=== PATIENT | female | born 1990 | race Two or more races ===

== ENCOUNTER 2020-03-19 14:36 | Observation (INO) | payer MEDICAID ==
[2020-03-19] MEDS ORDERED: FERR-7 PO (15:14)
[2020-03-19] MEDS ORDERED: PREN-96 PO (15:14)
== END 2020-03-19 16:00 | disposition home or self-care (01) ==
LOC: LDRP 14:36
PROVIDERS: ADMIT Specialist; ATTEND Specialist
DX: O24.419 Gestational diabetes mellitus in pregnancy, unspecified control (principal); Z3A.31 31 weeks gestation of pregnancy
CPT/HCPCS: 59025; 76818; 81002; 82962; G0378

== ENCOUNTER 2020-03-22 14:26 | Observation (INO) | payer MEDICAID ==
[~2020-03-22] VITALS: Ht 160 cm; Wt 64.9 kg
[~2020-03-22 14:26] MED LIST: FERR-7 PO; PREN-96 PO
== END 2020-03-22 16:54 | disposition home or self-care (01) ==
LOC: LDRP 14:26
PROVIDERS: ADMIT Obstetrics & Gynecology; ATTEND Obstetrics & Gynecology
DX: O24.419 Gestational diabetes mellitus in pregnancy, unspecified control (principal); Z3A.31 31 weeks gestation of pregnancy
CPT/HCPCS: 59025; 76818; 81002; 82948; 82962; G0378

== ENCOUNTER 2020-03-26 19:45 | Observation (INO) | payer MEDICAID | END 2020-03-26 21:57 | disposition home or self-care (01) | LOC: LDRP 19:45 | PROVIDERS: ADMIT Specialist; ATTEND Specialist | DX: O24.410 Gestational diabetes mellitus in pregnancy, diet controlled (principal); O99.333 Smoking (tobacco) complicating pregnancy, third trimester; F17.200 Nicotine dependence, unspecified, uncomplicated; Z3A.32 32 weeks gestation of pregnancy | CPT/HCPCS: 59025; 76818; 81002; 82948; 82962; G0378 ==

== ENCOUNTER 2020-03-30 19:01 | Observation (INO) | payer MEDICAID | END 2020-03-30 21:13 | disposition home or self-care (01) | LOC: UNDOADMOB 19:01 → LDRP 19:01 → UNDODISOB 21:13 | PROVIDERS: ADMIT Specialist; ATTEND Specialist | DX: O24.410 Gestational diabetes mellitus in pregnancy, diet controlled (principal); O26.893 Other specified pregnancy related conditions, third trimester; R51.9 Headache, unspecified; Z3A.33 33 weeks gestation of pregnancy | CPT/HCPCS: 59025; 76818; 81002; 82948; 82962; G0378 ==

== ENCOUNTER 2020-04-03 19:03 | Observation (INO) | payer MEDICAID | END 2020-04-03 20:22 | disposition home or self-care (01) | LOC: UNDOADMOB 19:03 → LDRP 19:03 → UNDODISOB 20:22 | PROVIDERS: ADMIT Obstetrics & Gynecology; ATTEND Obstetrics & Gynecology | DX: O24.419 Gestational diabetes mellitus in pregnancy, unspecified control (principal); Z3A.33 33 weeks gestation of pregnancy | CPT/HCPCS: 59025; 76818; 81002; 82948; 82962; G0378 ==

== ENCOUNTER 2020-04-06 19:00 | Observation (INO) | payer MEDICAID ==
[2020-04-06] MEDS ORDERED: TERBUTALINE SULFATE 1 MG/ML 1ML VIAL SC ONE ×2 (22:08→22:15)
[2020-04-06] MEDS ORDERED: LACTATED RINGER'S 1,000 ML IV ONE (22:15)
== END 2020-04-06 23:39 | disposition home or self-care (01) ==
LOC: LDRP 19:00 → UNDOADMOB 19:00 → UNDODISOB 23:39
PROVIDERS: ADMIT Specialist; ATTEND Specialist
DX: O24.419 Gestational diabetes mellitus in pregnancy, unspecified control (principal); Z20.828 Contact with and (suspected) exposure to other viral communicable diseases; O26.893 Other specified pregnancy related conditions, third trimester; R51.9 Headache, unspecified; R50.9 Fever, unspecified; Z3A.34 34 weeks gestation of pregnancy
CPT/HCPCS: 36415; 59025; 76818; 81002; 82962; 87426; 96360; 96361; 96372; G0378; J3105; U0003

== ENCOUNTER 2020-04-10 18:56 | Observation (INO) | payer MEDICAID | END 2020-04-10 20:43 | disposition home or self-care (01) | LOC: LDRP 18:56 → UNDOADMOB 18:56 → UNDODISOB 20:43 | PROVIDERS: ADMIT Specialist; ATTEND Specialist | DX: O24.419 Gestational diabetes mellitus in pregnancy, unspecified control (principal); Z3A.34 34 weeks gestation of pregnancy | CPT/HCPCS: 59025; 76818; 81002; 82948; G0378 ==

== ENCOUNTER 2020-04-14 19:10 | Observation (INO) | payer MEDICAID ==
[~2020-04-14] VITALS: Ht 160 cm; Wt 66.2 kg
[2020-04-14] MEDS ORDERED: NIFEdipine 10 MG CAP PO ONE (20:15)
[2020-04-14] MEDS ORDERED: NIFEdipine 10 MG CAP ONE (20:16)
[2020-04-14] MEDS ORDERED: TERBUTALINE SULFATE 1 MG/ML 1ML VIAL SC ONE ×2 (20:45→20:47)
[2020-04-14] MEDS ORDERED: NIF10C GT (21:14)
== END 2020-04-14 22:17 | disposition home or self-care (01) ==
LOC: LDRP 19:10
PROVIDERS: ADMIT Obstetrics & Gynecology; ATTEND Obstetrics & Gynecology
DX: O24.419 Gestational diabetes mellitus in pregnancy, unspecified control (principal); Z3A.34 34 weeks gestation of pregnancy
CPT/HCPCS: 59025; 76818; 81002; 96372; G0378; J3105

== ENCOUNTER 2020-04-17 20:01 | Observation (INO) | payer MEDICAID ==
[~2020-04-17 20:01] MED LIST changes: +NIF10C GT
[2020-04-17] MEDS ORDERED: NIF10C PO (20:45)
== END 2020-04-17 22:36 | disposition home or self-care (01) ==
LOC: LDRP 20:01
PROVIDERS: ADMIT Specialist; ATTEND Specialist
DX: O24.410 Gestational diabetes mellitus in pregnancy, diet controlled (principal); O98.513 Other viral diseases complicating pregnancy, third trimester; U07.1 COVID-19; Z3A.35 35 weeks gestation of pregnancy
CPT/HCPCS: 59025; 76818; 81002; 82948; 82962; G0378

== ENCOUNTER 2020-04-20 19:03 | Observation (INO) | payer MEDICAID ==
[~2020-04-20 19:03] MED LIST changes: -NIF10C GT; +NIF10C PO
[2020-04-20] MEDS ORDERED: diphenhdrAMINE HCL 25 MG CAP PO ONE (21:45)
== END 2020-04-20 22:19 | disposition home or self-care (01) ==
LOC: LDRP 19:03
PROVIDERS: ADMIT Obstetrics & Gynecology; ATTEND Obstetrics & Gynecology
DX: O24.410 Gestational diabetes mellitus in pregnancy, diet controlled (principal); O98.513 Other viral diseases complicating pregnancy, third trimester; U07.1 COVID-19; Z3A.36 36 weeks gestation of pregnancy
CPT/HCPCS: 59025; 76818; 81002; 82962; G0378

== ENCOUNTER 2020-04-24 19:57 | Observation (INO) | payer MEDICAID | END 2020-04-24 21:55 | disposition home or self-care (01) | LOC: LDRP 19:57 → UNDOADMOB 19:57 → UNDODISOB 21:55 | PROVIDERS: ADMIT Specialist; ATTEND Specialist | DX: O24.419 Gestational diabetes mellitus in pregnancy, unspecified control (principal); O98.513 Other viral diseases complicating pregnancy, third trimester; U07.1 COVID-19; Z3A.36 36 weeks gestation of pregnancy | CPT/HCPCS: 59025; 76818; 81002; 82948; G0378 ==

== ENCOUNTER 2020-04-27 19:54 | Observation (INO) | payer MEDICAID ==
[~2020-04-27] VITALS: Ht 160 cm; Wt 67.1 kg
[~2020-04-27 19:54] MED LIST changes: -FERR-7 PO
[2020-04-27] MEDS ORDERED: PREN-96 PO (21:21)
[2020-04-27] MEDS ORDERED: NIF10C GT (21:21)
== END 2020-04-27 22:16 | disposition home or self-care (01) ==
LOC: LDRP 19:54
PROVIDERS: ADMIT Specialist; ATTEND Specialist
DX: O24.419 Gestational diabetes mellitus in pregnancy, unspecified control (principal); Z3A.37 37 weeks gestation of pregnancy
CPT/HCPCS: 59025; 76818; 81002; 82948; 82962; G0378

== ENCOUNTER 2020-05-01 19:55 | Observation (INO) | payer MEDICAID ==
[~2020-05-01] VITALS: Ht 160 cm; Wt 67.1 kg
== END 2020-05-01 22:14 | disposition home or self-care (01) ==
LOC: LDRP 19:55
PROVIDERS: ADMIT Specialist; ATTEND Specialist
DX: O24.419 Gestational diabetes mellitus in pregnancy, unspecified control (principal); Z3A.37 37 weeks gestation of pregnancy
CPT/HCPCS: 59025; 76818; 81002; 82948; 82962; G0378

== ENCOUNTER 2020-05-04 20:00 | Observation (INO) | payer MEDICAID | END 2020-05-04 22:00 | disposition home or self-care (01) | LOC: LDRP 20:00 | PROVIDERS: ADMIT Obstetrics & Gynecology; ATTEND Obstetrics & Gynecology | DX: O98.513 Other viral diseases complicating pregnancy, third trimester (principal); U07.1 COVID-19; O24.419 Gestational diabetes mellitus in pregnancy, unspecified control; O62.9 Abnormality of forces of labor, unspecified; Z3A.38 38 weeks gestation of pregnancy; Z91.040 Latex allergy status | CPT/HCPCS: 36415; 59025; 81002; 82948; 87426; G0378; U0003 ==

== ENCOUNTER 2020-05-07 19:58 | Observation (INO) | payer MEDICAID ==
[~2020-05-07 19:58] MED LIST changes: -NIF10C PO
== END 2020-05-07 22:00 | disposition home or self-care (01) ==
LOC: LDRP 19:58
PROVIDERS: ADMIT Specialist; ATTEND Specialist
DX: O24.419 Gestational diabetes mellitus in pregnancy, unspecified control (principal); O21.2 Late vomiting of pregnancy; Z3A.38 38 weeks gestation of pregnancy
CPT/HCPCS: 59025; 76818; 81002; 82962; G0378

== ENCOUNTER 2020-05-10 20:38 | Observation (INO) | payer MEDICAID ==
[~2020-05-10] VITALS: Ht 160 cm; Wt 67.1 kg
[2020-05-10] MEDS ORDERED: FERR27TA2 PO (21:41)
== END 2020-05-10 23:33 | disposition home or self-care (01) ==
LOC: LDRP 20:38
PROVIDERS: ADMIT Obstetrics & Gynecology; ATTEND Obstetrics & Gynecology
DX: O24.429 Gestational diabetes mellitus in childbirth, unspecified control (principal); O62.9 Abnormality of forces of labor, unspecified; Z86.16 Personal history of COVID-19; Z3A.38 38 weeks gestation of pregnancy; Z79.899 Other long term (current) drug therapy
CPT/HCPCS: 59025; 76818; 81002; 82948; 82962; G0378

== ENCOUNTER 2020-05-14 19:58 | Observation (INO) | payer MEDICAID ==
[~2020-05-14] VITALS: Ht 167.6 cm; Wt 81.6 kg
[~2020-05-14 19:58] MED LIST changes: +FERR27TA2 PO
== END 2020-05-14 23:17 | disposition home or self-care (01) ==
LOC: LDRP 19:58
PROVIDERS: ADMIT Specialist; ATTEND Specialist
DX: O62.9 Abnormality of forces of labor, unspecified (principal); Z3A.39 39 weeks gestation of pregnancy; Z79.899 Other long term (current) drug therapy
CPT/HCPCS: 59025; 76818; 81002; 82948; 82962; G0378

== ENCOUNTER 2020-05-17 16:36 | Inpatient (IN) | payer MEDICAID ==
[~2020-05-17] VITALS: Ht 30.5 cm; Wt 0.5 kg
[2020-05-17] MEDS ORDERED: LACT. RINGERS/OXYTOCIN 20UNITS 1,000 ML IV ONE ×2 (17:08→22:30)
[2020-05-17] MEDS ORDERED: LIDOCAINE 2%HCL (LOCAL ANESTH.) INJ 20ML MDV ONE (17:08)
[2020-05-17] MEDS ORDERED: METHYLERGONOVINE MALEATE 0.2 MG/ML AMP IM ONE ×2 (17:09→17:57)
[2020-05-17] MEDS ORDERED: PHISODERM TOP SOLN 240ML BTL TOP ONE (17:09)
[2020-05-17] MEDS ORDERED: WITCH HAZEL-GLYCERIN PAD TOP ONE (17:09)
[2020-05-17] MEDS ORDERED: DERMOPLAST 60ML BOTTLE TOP ONE (17:09)
[2020-05-17] MEDS ORDERED: CARBOPROST TROMETHAMINE 250 MCG/1ML VIAL IM ONE ×2 (17:57→18:33)
[2020-05-17] MEDS ORDERED: BUTORPHANOL TARTRATE 2 MG/1 ML VIAL ONE (18:11)
[2020-05-17] MEDS: CARBOPROST TROMETHAMINE 250 MCG/1ML VIAL IM PRN ×3 (18:17→19:00)
[2020-05-17] MEDS ORDERED: ONDANSETRON HCL 4 MG/2 ML VIAL ONE (18:22)
[2020-05-17] MEDS ORDERED: LACTATED RINGER'S 1,000 ML IV SCH (18:30)
[2020-05-17] MEDS ORDERED: DIPHENOXYLATE W/ATROPINE 2.5 MG TAB PO ONE (18:30)
[2020-05-17] MEDS ORDERED: DIPHENOXYLATE W/ATROPINE 2.5 MG TAB ONE (18:31)
[2020-05-17] MEDS ORDERED: PHISODERM TOP SOLN 240ML BTL TOP PRN (18:45)
[2020-05-17] MEDS ORDERED: BUTORPHANOL TARTRATE 2 MG/1 ML VIAL IV PRN (18:45)
[2020-05-17] MEDS ORDERED: miSOPROStol 100 mcg TAB SL ONE (18:45)
[2020-05-17] MEDS ORDERED: WITCH HAZEL-GLYCERIN PAD TOP PRN (18:45)
[2020-05-17] MEDS ORDERED: ONDANSETRON HCL 4 MG/2 ML VIAL IV PRN (18:45)
[2020-05-17] MEDS ORDERED: DERMOPLAST 60ML BOTTLE TOP PRN (18:45)
[2020-05-17] MEDS ORDERED: miSOPROStol 100 mcg TAB PR ONE (18:45)
[2020-05-17] MEDS ORDERED: ceFAZolin 1GM/50ML 50 ML IV ONE (18:59)
[2020-05-17 19:41] LABS: Basophils # (auto) 0.1 10 ^3/uL (0-0.2); Basophils % (auto) 0.5 % (0.0-2.0); Eosinophils # (auto) 0 10 ^3/uL (0-0.8); Hematocrit 38.9 % (36.0-46.0); Hemoglobin 12.8 g/dL (12.2-16.2); Lymphocytes # (auto) 0.7 10 ^3/uL (0.4-5.4); Lymphocytes % (auto) 4.3 % (10.0-50.0); Mean Corpuscular Hemoglobin 29.2 pg (28.0-32.0); Mean Corpuscular Hgb Conc. 32.9 g/dL (32.0-36.0); Mean Corpuscular Volume 88.8 fL (80.0-100.0); Monocytes # (auto) 0.6 10 ^3/uL (0-1.3); Monocytes % (auto) 3.2 % (0.0-12.0); Neutrophils # (auto) 15.8 10 ^3/uL (1.6-8.6); Nucleated Red Blood Cells % 0.1 %; Platelet Count (auto) 190 10^3/uL (140-450); Red Blood Cells 4.38 10^6/uL (4.0-5.20); Red Cell Distribution Width 16.2 % (11.8-14.3); White Blood Cell 17.2 10^3/uL (4.4-10.8)
[2020-05-17] MEDS: ceFAZolin 1GM/50ML 50 ML IV SCH (19:41)
[2020-05-17 19:58] LABS: Albumin 2.4 g/dL (3.4-5.0); Calcium 8.5 mg/dL (8.5-10.1); Potassium 4.3 mmol/L (3.5-5.1)
[2020-05-17 20:00] LABS: INR 0.95 (0.9-1.15); Partial Thromboplastin Time 25.5 sec (23.0-31.2)
[2020-05-17 20:02] LABS: BUN/Creatinine Ratio 6.7; Bilirubin, Total 0.4 mg/dL (0.2-1.0); Total Protein 7.1 g/dL (6.4-8.2)
[2020-05-17] MEDS ORDERED: ceFAZolin 1GM/50ML 50 ML IV SCH (22:00)
[2020-05-17] MEDS ORDERED: DIPHENOXYLATE W/ATROPINE 2.5 MG TAB PO SCH (22:00)
[2020-05-17] MEDS ORDERED: IBUPROFEN 600 MG TAB PO ONE (22:32)
[2020-05-17] MEDS: IBUPROFEN 600 MG TAB PO PRN (22:36)
[2020-05-17 22:59] VITALS: BP 94/53
[2020-05-18] MEDS ORDERED: INFLUENZA QUAD 2020-2021 0.5 ML SYRG IM ONE
[2020-05-18 02:56] VITALS: BP 96/55
[2020-05-18] MEDS: ceFAZolin 1GM/50ML 50 ML IV SCH ×2 (04:20→11:46)
[2020-05-18 07:00] VITALS: BP 99/56
[2020-05-18] MEDS ORDERED: TETANUS-DIPTH-ACEL PERTUSSIS 0.5ML SYR Tdap IM ONE (09:15)
[2020-05-18 11:00] VITALS: BP 98/56
[2020-05-18] MEDS ORDERED: miSOPROStol 100 mcg TAB PO ONE (11:49)
[2020-05-18] MEDS: IBUPROFEN 600 MG TAB PO PRN (11:58)
[2020-05-18 15:30] VITALS: BP 99/55
[2020-05-18 19:25] VITALS: BP 94/61
[2020-05-18] MEDS ORDERED: ceFAZolin 1GM/50ML 50 ML IV SCH (20:00)
[2020-05-18 23:00] VITALS: BP 98/55
[2020-05-19 03:00] VITALS: BP 100/65
[2020-05-19] MEDS ORDERED: ceFAZolin 1GM/50ML 50 ML IV SCH (04:00)
[2020-05-19 05:06] LABS: RPR Non Reactive (Non Reactive)
[2020-05-19 07:00] VITALS: BP 105/56
[2020-05-19] MEDS: IBUPROFEN 600 MG TAB PO PRN (07:40)
[2020-05-19 11:00] VITALS: BP 95/32
[2020-05-19 12:32] LABS: Basophils # (auto) 0.1 10 ^3/uL (0-0.2); Basophils % (auto) 0.4 % (0.0-2.0); Eosinophils # (auto) 0 10 ^3/uL (0-0.8); Eosinophils % (auto) 0.2 % (0.0-7.0); Hematocrit 28.9 % (36.0-46.0); Hemoglobin 9.6 g/dL (12.2-16.2); Lymphocytes # (auto) 2.2 10 ^3/uL (0.4-5.4); Lymphocytes % (auto) 15.3 % (10.0-50.0); Mean Corpuscular Hemoglobin 29.8 pg (28.0-32.0); Mean Corpuscular Hgb Conc. 33.1 g/dL (32.0-36.0); Monocytes # (auto) 0.7 10 ^3/uL (0-1.3); Monocytes % (auto) 4.8 % (0.0-12.0); Neutrophils # (auto) 11.3 10 ^3/uL (1.6-8.6); Neutrophils % (auto) 79.3 % (37.0-80.0); Nucleated Red Blood Cells % 0.2 %; Platelet Count (auto) 189 10^3/uL (140-450); Red Blood Cells 3.21 10^6/uL (4.0-5.20); Red Cell Distribution Width 16.4 % (11.8-14.3); White Blood Cell 14.2 10^3/uL (4.4-10.8)
== END 2020-05-19 13:10 | disposition home or self-care (01) | DRG 560 ==
LOC: OBSVTOIN 16:36 → LDRP 16:36
PROVIDERS: ADMIT Obstetrics & Gynecology; ATTEND Obstetrics & Gynecology
PROC: 10E0XZZ Delivery of Products of Conception, External Approach (ICD-10-PCS; principal; 2020-05-17)
PROC: 3E0D7GC Introduction of Other Therapeutic Substance into Mouth and Pharynx, Via Natural or Artificial Opening (ICD-10-PCS; 2020-05-17)
DX: O24.429 Gestational diabetes mellitus in childbirth, unspecified control (principal); O62.3 Precipitate labor; Z3A.39 39 weeks gestation of pregnancy; Z37.0 Single live birth; U07.1 COVID-19; O98.52 Other viral diseases complicating childbirth; O75.89 Other specified complications of labor and delivery; Z23 Encounter for immunization; R71.0 Precipitous drop in hematocrit
CPT/HCPCS: 36415; 59025; 59409; 80053; 85025; 85384; 85610; 85730; 86592; 86850; 86900; 86901; 86920; 87426; 96360; 96361; 96366; 96372; 96374; 96375; G0378; J0690; J2405; J2590